=== PATIENT | female | born 1975 | race African-American/Black ===

== ENCOUNTER 2025-01-31 11:06 | Emergency (ER) | payer OTHER ==
[~2025-01-31] VITALS: Ht 162.6 cm; Wt 116.0 kg
[2025-01-31 11:09] VITALS: PULSE 94; RESP 16; O2SAT 100
[2025-01-31 11:12] VITALS: BP 142/85; TEMP 36.8; O2SAT 100
[2025-01-31] MEDS ORDERED: ACET-2708 MT (12:16)
== END 2025-01-31 12:33 | disposition home or self-care (01) ==
LOC: ER 11:06
DX: M79.672 Pain in left foot (principal); E03.9 Hypothyroidism, unspecified; I10 Essential (primary) hypertension; Z98.890 Other specified postprocedural states; Z88.5 Allergy status to narcotic agent; Z88.0 Allergy status to penicillin; X50.0XXA Overexertion from strenuous movement or load, initial encounter; Y93.89 Activity, other specified; Y92.89 Other specified places as the place of occurrence of the external cause; Y99.8 Other external cause status
CPT/HCPCS: 99283; 73630; A6449

== ENCOUNTER 2025-06-04 09:29 | Emergency (ER) | payer MEDICAID, OTHER ==
[~2025-06-04] VITALS: Ht 162.6 cm; Wt 119.0 kg
[~2025-06-04 09:29] MED LIST: ACET-2708 MT
[2025-06-04 09:39] VITALS: O2SAT 100
[2025-06-04] MEDS: KETOROLAC 15MG/ML VIAL IM ONE (09:55)
[2025-06-04 10:13] LABS: CLARITY URINE CLEAR (CLEAR); COLOR URINE YELLOW (YELLOW); GLUCOSE URINE NEGATIVE (NEGATIVE); KETONES URINE TRACE (NEGATIVE); LEUKOCYTE ESTERASE URINE NEGATIVE (NEGATIVE); NITRITE URINE NEGATIVE (NEGATIVE); OCCULT BLOOD URINE NEGATIVE (NEGATIVE); PH URINE 6.0 (4.5-8.0); PROTEIN URINE NEGATIVE (NEGATIVE); SPECIFIC GRAVITY URINE 1.020 (1.005-1.030); UROBILINOGEN URINE 0.2 E.U./dL (0.2-1.0)
[2025-06-04 10:25] LABS: BASOPHILS % 0.5 % (0.0-2.0); EOSINOPHILS % 0.7 % (0.0-5.0); HEMATOCRIT. 33.5 % (36.0-48.0); HEMOGLOBIN. 10.6 g/dL (12.0-16.0); LYMPHOCYTES % 21.8 % (20.0-50.0); MEAN PLATELET VOLUME 8.3 fl (7.4-10.4); MONOCYTES % 10.0 % (2.0-8.0); NEUTROPHILS % 67.0 % (40.0-76.0); PLATELET 279 x1000/uL (130-400); RED BLOOD CELL COUNT 4.04 mill/uL (4.2-5.4); RED CELL DISTRIBUTION WIDTH 15.2 % (11.6-14.6)
[2025-06-04 10:40] LABS: CREATININE 0.9 mg/dL (0.6-1.0); UREA NITROGEN BLOOD 5 mg/dL (9-23)
[2025-06-04 10:42] LABS: ASPARTATE AMINOTRANSFERASE 20 IU/L (<34); BILIRUBIN DIRECT < 0.1 mg/dL (<=3.0); BILIRUBIN TOTAL 0.3 mg/dL (0.1-1.0); PROTEIN TOTAL 7.0 g/dL (6.0-8.3)
[2025-06-04 11:02] LABS: HCG SCREEN NEGATIVE
[2025-06-04] MEDS ORDERED: CEFP200T13 MT (11:11)
[2025-06-04 11:16] VITALS: BP 134/80; PULSE 86; RESP 12; TEMP 36.7; O2SAT 100
[2025-06-04] MEDS ORDERED: FLUC150T46 MT (11:16)
== END 2025-06-04 11:21 | disposition home or self-care (01) ==
LOC: ER 09:29
DX: J40 Bronchitis, not specified as acute or chronic (principal); B37.9 Candidiasis, unspecified; Z88.0 Allergy status to penicillin; Z88.5 Allergy status to narcotic agent
CPT/HCPCS: 99284; 71046; 80076; 80048; 81003; 84703; 83690; 85025; 36415; 96372; J1885